=== PATIENT | female | born 2005 | race Caucasian/White ===

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

== ENCOUNTER 2025-05-22 18:49 | Emergency (ER) | payer OTHER, SELFPAY ==
--- NOTE | ~2025-05-22 | XR_ITS ---
CLINICAL HISTORY: cough >2weeks 2 view chest x-ray Comparison: None provided Findings: No consolidation or effusion. Normal size heart. No acute fracture. IMPRESSION: 1. No acute findings. This document has been electronically signed by: Anish Banerjee MD on 05/22/2025 19:30:17
--- NOTE | 2025-05-22 18:50 | ECG_ITS ---
Test Reason : cp Blood Pressure : */* mmHG Vent. Rate : 105 BPM Atrial Rate : 105 BPM P-R Int : 142 ms QRS Dur : 74 ms QT Int : 290 ms P-R-T Axes : 43 25 49 degrees QTcB Int : 383 ms Sinus tachycardia Otherwise normal ECG No previous ECGs available Referred By: Sabrina Mosquera Electronically Signed By: Pascual Paulino
--- NOTE | 2025-05-22 18:56 | ED.GENADULT ---
HPI - General Adult General Chief complaint: Chest Pain Stated complaint: CP, SOB Time Seen by Provider: 05/22/25 21:40 Source: patient Mode of arrival: ambulatory Limitations: no limitations History of Present Illness ED Provider: Vinnie SAMPSON HPI narrative: The patient is a 19-year-old biological female currently transitioning to male, taking testosterone supplementation, presenting to the ED for evaluation of viral URI symptoms. Patient reports 2 weeks ago he was diagnosed with COVID, reports feeling better for approximately 1-2 days and then began feeling recurrent symptoms of painful cough, with congestion, post-tussive vomiting, and generalized malaise. Patient denies associated objective fever, abdominal pain, spontaneous vomiting, diarrhea, dysuria, hematuria, hemoptysis, pleurisy, or near-syncope/syncope. The patient last took DayQuil this morning, no medications this afternoon or evening. Related Data Home Medications ?Medication ?Instructions ?Recorded ?Confirmed albuterol sulfate 90 mcg/actuation 2 puff inhalation Q4-6H PRN 09/08/22 07/20/23 aerosol inhaler Previous Rx's ?Medication ?Instructions ?Recorded acetaminophen 500 mg capsule 1,000 mg (2 x 500 mg) PO .q8 PRN 05/22/25 fever or pain #30 caps ibuprofen 600 mg tablet 600 mg PO Q8H PRN fever or pain 05/22/25 #30 tabs ondansetron 4 mg disintegrating 4 mg PO Q8H PRN nausea and 05/22/25 tablet vomiting #14 tabs Allergies Allergy/AdvReac Type Severity Reaction Status Date / Time No Known Allergies (No Known Allergy Verified 05/22/25 18:58 Allergies*) Review of Systems Review of Systems: Yes all other systems are reviewed and are negative [facility] Social History Social History (Updated 07/20/23 @ 13:22 by Milana Crump NP) Advance Directives: No Advance Directives Information Provided: Yes Sexual orientation: Straight/Heterosexual Gender identity: Female Physical Exam ED Vital Signs: Vital Signs - 24 hr 05/22/25 18:57 05/22/25 20:18 05/22/25 22:35 Temperature 98 F 98.6 F 98.6 F Pulse Rate 106 H 110 H 100 Respiratory Rate 16 18 20 Blood Pressure 146/85 H 132/84 135/88 Pulse Oximetry 97 96 97 Oxygen Delivery Method Room Air Room Air Room Air BMI result Body Mass Index 35.0 CONSTITUTIONAL: The patient appears non-toxic, well nourished and in no acute distress. Vital signs as documented. HEAD: Atraumatic, normocephalic. EYES: EOMs grossly intact, pupils equal, conjunctiva clear, no exudate. ENT: Nares patent, no discharge. Airway patent, no audible stridor, visible mucosa is pink and moist without noted lesions. NECK: Trachea is midline, no obvious masses or gross abnormalities. CHEST: Symmetric movement, normal appearance. LUNGS: LS present and CTAB, no w/r/r. Non-labored work of breathing. CARDIAC: Regular Rhythm, S1/S2 appreciated, no murmurs, rubs or gallops. ABDOMEN: Abdomen soft and non-tender x4 quadrants, no palpable masses or organomegaly. : Deferred. EXTREMITIES: Normal tone, moves all extremities spontaneously without reported pain. No obvious acute injury or deformity noted. NEURO: Alert and oriented x3, CN II-XII appear grossly intact. Cerebellar Functioning grossly intact. No obvious sensory or motor deficits. Speech clear and appropriate. PSYCH: normal affect, appropriate eye contact, fluid speech, with appropriate response to questioning. No reported suicidality or homicidality. SKIN: Warm, dry, color appropriate, normal turgor. No rashes noted. Course Course Course Narrative: This is a rapid medical exam performed by Opal Mosquera NP: Additional HPI, ROS, PE not included below will be deferred to primary provider. Patient is a 19-year-old assigned female at who identifies by male presenting with complaint of shortness of breath, congestion, cough. Recently had positive Covid test 2 weeks ago. States sister recently dx with pna and flu. Chest pain due to coughing. Plan: viral swabs, CXR, EKG Medications Administered Discontinued Medications Generic Name Dose Route Start Last Admin Trade Name Freq PRN Reason Stop Dose Admin Acetaminophen 975 mg 05/22/25 22:33 05/22/25 22:43 Acetaminophen 325 Mg Tablet PO 05/22/25 22:34 975 mg ONCE ONE Administration Sodium Chloride 1,000 mls @ 999 mls/hr 05/22/25 22:45 05/23/25 00:02 Ns IV 05/22/25 23:45 Infused .Q1H1M MIRIAM Infusion Ketorolac Tromethamine 15 mg 05/22/25 22:32 05/22/25 22:43 Ketorolac Tromethamine 15 Mg/Ml Vial IVPUSH 05/22/25 22:33 15 mg ONCE ONE Administration Ondansetron HCl 4 mg 05/22/25 22:49 05/22/25 22:54 Ondansetron Hcl 4 Mg/2 Ml Vial IVPUSH 05/22/25 22:50 4 mg ONCE ONE Administration Medical Decision Making Medical Decision Making [facility] Narrative: 10:31 PM 05/22/2025 (Noris SAMPSON): The patient is a 19-year-old biological female currently transitioning to male, taking testosterone supplementation, presenting to the ED for evaluation of viral URI symptoms. Patient reports 2 weeks ago he was diagnosed with COVID, reports feeling better for approximately 1-2 days and then began feeling recurrent symptoms of painful cough, with congestion, post-tussive vomiting, and generalized malaise. Patient denies associated objective fever, abdominal pain, spontaneous vomiting, diarrhea, dysuria, hematuria, hemoptysis, pleurisy, or near-syncope/syncope. The patient last took DayQuil this morning, no medications this afternoon or evening. On exam the patient appears fatigued, but otherwise in no acute distress, lung sounds clear to auscultation bilaterally. The patient's viral swab is positive for influenza, otherwise negative. EKG is nonischemic, chest x-ray shows no focal consolidation. The patient's symptoms are likely secondary to influenza. Patient will be treated with IV fluid hydration, Toradol, Tylenol, and we will reassess heart rate for resolution of tachycardia. Pending improvement in heart rate patient will be appropriate for discharge with supportive care. Admission/Observation Consideration of admission/observation: Escalation of care including admission/observation considered Lab Data [facility] Lab Attestation statement: I reviewed the patient's lab results. Labs: Lab Results 05/22/25 Range/Units 19:06 Influenza Type A (PCR) POSITIVE A (Negative) Influenza Type B (PCR) NEGATIVE (Negative) RSV RNA Qual (PCR) NEGATIVE (Negative) SARS-CoV-2 RNA (RT-PCR) NEGATIVE (Negative) Independent Interpretation I performed an independent interpretation of an: EKG (EKG demonstrates sinus tachycardia with a rate of 105, no evidence of acute ischemia, no ST elevation, no ectopy. QTC 383. No old for comparison.) Radiology Impression Discussion of test interpretation with radiology: I have reviewed the radiologist's reading. Radiologist Impression: 2 view chest x-ray Comparison: None provided Findings: No consolidation or effusion. Normal size heart. No acute fracture. IMPRESSION: 1. No acute findings. This document has been electronically signed by: Anish Banerjee MD on 05/22/2025 19:30:17 External Record Review External record reviewed: Outpatient record Prescription Management I considered prescription management with: Pain Medication Discharge Plan Discharge Clinical Impression: Influenza A Patient Disposition: Home, Self-Care Instructions: Influenza (ED) Additional Instructions: Thank you for choosing [facility]'s Emergency Department for your care today. At this time there is no indication for admission to the hospital or continued ED observation, and it is safe to discharge you home. Thankfully your testing today was negative for pneumonia, COVID, and RSV. Unfortunately however you did test positive for influenza which is likely the cause of your symptoms. Your heart rate improved following IV fluid hydration and anti-inflammatories. You should take alternating (staggered) doses of ibuprofen 600mg and Tylenol 1000mg every 4 hours as needed for any additional fever, congestion, cough, or discomfort. You may take DayQuil or NyQuil in place of the above outlined Tylenol dosing if you prefer, however do NOT take Tylenol and DayQuil/NyQuil at the same time as these both contain Tylenol and could put you at risk for a Tylenol overdose. Be sure not to take more than 4000 mg of Tylenol in a 24 hour period. Please stay well hydrated and get plenty of rest. Please take Zofran as needed as directed for nausea/vomiting. Please follow up with your primary care physician for re-evaluation, additional management of your symptoms, and continued preventative care. If you do not have a primary care physician, please call the [facility] at [phone] to establish a new primary care physician. While waiting to establish your new primary care physician, you can call our Walk-in Care Clinic at [phone] for non-emergency needs. Please return to the emergency department if you develop a severe or sudden change in your symptoms, a fever over 100.4 that does not improve with Tylenol or Ibuprofen, recurrent vomiting, or any other new or worsening symptoms or concerns. Prescriptions: New ibuprofen 600 mg tablet 600 mg PO Q8H PRN (Reason: fever or pain) Qty: 30 0RF ondansetron 4 mg tablet,disintegrating 4 mg PO Q8H PRN (Reason: nausea and vomiting) Qty: 14 0RF acetaminophen 500 mg capsule 1,000 mg PO .q8 PRN (Reason: fever or pain) Qty: 30 0RF No Action albuterol sulfate 90 mcg/actuation HFA aerosol inhaler 2 puff inhalation Q4-6H PRN Referrals: Yulia Braun MD [Primary Care Provider, Pediatrics] Clinical Impression: Influenza A Print Language: Macedonian
[2025-05-22 18:57] VITALS: BP 146/85; PULSE 106; RESP 16; TEMP 36.6; O2SAT 97; BMI 35.0
[2025-05-22 19:49] LABS: Resp Syncy Virus RNA Qual PCR NEGATIVE (Negative); SARS COV2 PCR INHOUSE NEGATIVE (Negative)
[2025-05-22 20:18] VITALS: BP 132/84; PULSE 110; RESP 18; TEMP 37; O2SAT 96
[2025-05-22 22:35] VITALS: BP 135/88; PULSE 100; RESP 20; TEMP 37; O2SAT 97
--- NOTE | 2025-05-22 23:00 | PC.NURSE ---
Patient medicated per provider orders with Zofran for nausea. Grandmother at bedside, visiting.
[2025-05-23 01:10] VITALS: BP 128/78; PULSE 100; RESP 20; TEMP 37; O2SAT 97
== END 2025-05-23 01:17 | disposition home or self-care (01) ==
PROVIDERS: Registered Nurse Emergency; Emergency Provider Emergency Medicine; PCP Specialist
DX: J10.1 Influenza due to other identified influenza virus with other respiratory manifestations (principal); R07.9 Chest pain, unspecified; R06.02 Shortness of breath; R00.0 Tachycardia, unspecified; R05.9 Cough, unspecified
CPT/HCPCS: 71046; 87637; 93005; 96361; 96374; 96375; 99284; J1885; J2405

== ENCOUNTER → 2025-05-22 18:50 | Outpatient (BNV) | payer OTHER, SELFPAY | PROVIDERS: Emergency Provider Emergency Medicine; PCP Specialist; Visit Provider Internal Medicine Cardiovascular Disease | DX: R00.0 Tachycardia, unspecified (principal) | CPT/HCPCS: 93010 ==

== ENCOUNTER → 2025-05-22 18:57 | Outpatient (BNV) | payer OTHER, SELFPAY | PROVIDERS: PCP Specialist; Visit Provider Radiology Diagnostic Radiology | DX: R05.9 Cough, unspecified (principal) | CPT/HCPCS: 71046 ==